=== PATIENT | male | born 1965 ===

== ENCOUNTER 2019-05-07 07:58 | Emergency (ER) | payer SELFPAY ==
[2019-05-07 08:32] VITALS: BP 144/100
--- NOTE | 2019-05-07 08:47 | UC ---
Ear Complaint HPI - HPI Summary HPI Summary: Patient is a 53-year-old male presenting with right ear pain, pressure, and decreased hearing 3 weeks. States he had one episode of dizziness that lasted a couple minutes 1 week ago but none since. Denies symptoms of the left ear. Notes mild nasal congestion but denies any upper respiratory or cold symptoms. Denies headaches. Denies changes in vision. Denies sore throat, cough, sinus tenderness. Patient states he tried [id number] eardrops for wax removal without relief. - History of Current Complaint Chief Complaint: UCEar Stated Complaint: RIGHT EAR PAIN Hx Obtained From: Patient Severity Currently: None Pain Intensity: 0 - Allergies/Home Medications Allergies/Adverse Reactions: Allergies Allergy/AdvReac Type Severity Reaction Status Date / Time No Known Allergies Allergy Verified 05/07/19 08:28 Home Medications: Home Medications Omeprazole CAP (NF) [Prilosec CAP* 20 MG] 20 mg PO DAILY 05/07/19 [History Confirmed 05/07/19] PMH/Surg Hx/FS Hx/Imm Hx Previously Healthy: Yes - Surgical History Surgical History: Yes Surgery Procedure, Year, and Place: Appendectomy, 1990, [place] - Family History Known Family History: Positive: Non-Contributory - Social History Alcohol Use: Daily Substance Use Type: None Smoking Status (MU): Heavy Every Day Tobacco Smoker Type: Smokeless Tobacco Amount Used/How Often: ~1/2 can daily Length of Time of Smoking/Using Tobacco: Since Age 14 Review of Systems All Other Systems Reviewed And Are Negative: Yes Constitutional: Positive: Negative. Negative: Fever, Chills, Fatigue Eyes: Positive: Negative ENT: Positive: Ear Ache, Sinus Congestion. Negative: Sore Throat, Nasal Discharge, Sinus Pain/Tenderness Respiratory: Positive: Negative Cardiovascular: Positive: Negative Gastrointestinal: Positive: Negative Musculoskeletal: Positive: Negative Neurological: Positive: Headache Physical Exam Triage Information Reviewed: Yes Appearance: Well-Appearing, No Pain Distress, Well-Nourished Vital Signs: Initial Vital Signs Temp 98 F 05/07/19 08:27 Pulse 64 05/07/19 08:27 Resp 16 05/07/19 08:27 BP 144/100 05/07/19 08:27 Pulse Ox 100 05/07/19 08:27 Vital Signs Reviewed: Yes Eyes: Positive: Conjunctiva Clear ENT: Positive: Hearing grossly normal, Pharynx normal, TMs normal - Bilateral cerumen impaction. Ear irrigation revealed intact TMs with normal landmarks and light reflex., Uvula midline. Negative: Nasal congestion, Nasal drainage, Tonsillar swelling, Tonsillar exudate, Sinus tenderness Neck exam: Normal Neck: Positive: Supple, Nontender, No Lymphadenopathy Respiratory Exam: Normal Respiratory: Positive: Lungs clear, Normal breath sounds, No respiratory distress, No accessory muscle use Cardiovascular Exam: Normal Cardiovascular: Positive: RRR Neurological: Positive: Alert Psychological: Positive: Age Appropriate Behavior Ear Complaint Course/Dx - Course Course Of Treatment: Patient's ear were irrigated to remove copious amount of wax. Bilateral TMs reveal no signs of infection. Patient noted some relief of discomfort afterward. Instructed patient not to place objected in ears and to follow up with Physician Referral or ENT referral as listed for follow-up if symptoms persist. Patient voiced understanding and agreed to treatment plan. - Differential Dx/Diagnosis Provider Diagnosis: Impacted cerumen of both ears Discharge ED - Sign-Out/Discharge Documenting (check all that apply): Patient Departure All imaging exams completed and their final reports reviewed: No Studies - Discharge Plan Condition: Stable Disposition: HOME Patient Education Materials: Cerumen Impaction (ED) Referrals: [facility] [Outside] - If Needed [facility] REFERRAL [Outside] - If Needed Jerad Martin MD [Medical Doctor] - If Needed Additional Instructions: As discussed you had wax removed from both ears today. You may take ibuprofen as directed for pain relief. You may Flonase or other nasal sprays as directed for relief of any congestion. Follow-up with the [facility], physician referral, or the ENT referral as listed below if your discomfort or decreased hearing persists. - Billing Disposition and Condition Condition: STABLE Disposition: Home - Attestation Statements Provider Attestation: I was available for consult. This patient was seen by the JIN. The patient was not presented to, seen by, or examined by me. -Maximo
== END 2019-05-07 09:21 | disposition home or self-care (01) ==
LOC: UCCORT 07:58
DX: H61.23 Impacted cerumen, bilateral (principal); F17.290 Nicotine dependence, other tobacco product, uncomplicated; R09.81 Nasal congestion
CPT/HCPCS: 69210; 99203; G0463